=== PATIENT | female | born 1935 | race Caucasian/White ===

== ENCOUNTER 2022-11-25 03:38 | Inpatient (IN) ==
[2022-11-25] MEDS ORDERED: ONDANSETRON 4 MG/2 ML VIAL IV PRN (03:58)
[2022-11-25] MEDS ORDERED: ACETAMINOPHEN 325 MG TABLET PO PRN (03:58)
--- NOTE | 2022-11-25 04:01 | Internal Med History&Physical ---
HPI History of Present Illness Patient information: Note initiated : 11/25/22 at 4:01 am Service Date, if different from initiated Date: [] Patient: Rosie Caro 86 y/o F admitted on . Chief Complaint: [] History of present illness: Ms. Caro is a 86 year old female with a history not limited to hypertension, atrial flutter (on Coumadin), type 2 diabetes mellitus, hypothyroidism, gout, reportedly chronically elevated LFTs who presented to [facility] emergency department feeling unwell. The patient apparently lives in a facility but she does not recall if is at his assisted living or a senior care facility. At [facility], the patient was found to have an acute kidney injury. A CT scan was obtained and showed sigmoid wall thickening, mild diverticulosis, intermediate lesions in bilateral kidneys. A urinalysis was positive for leukocyte Estrace, negative for nitrates. [facility] reported that there were no beds available, transfer to [facility] was requested. The patient was excepted for admission at [facility]. Upon arrival, the patient does not recall going to the emergency department and also does not re call why she went to the emergency department. Examination is notable for left lower quadrant tenderness. Patient's CODE STATUS is DNR/DNI. Review of systems Constitutional: Positive for fatigue Eyes: no vision changes or pain Cardiovascular: no chest pain, no palpitations Respiratory: no cough or dyspnea Gastrointestinal: no abdominal pain, no nausea, vomiting, or diarrhea Genitourinary: Positive for urinary incontinence, denies dysuria Musculoskeletal: no arthralgia or myalgia Integumentary: Positive for skin bruising Neurological: no focal weakness or numbness Psychiatric: no anxiety or depression Physical exam Head: Atraumatic, normal inspection. Eyes: normal appearance, no scleral icterus. Neck: full ROM Respiratory: no respiratory distress. Cardiovascular: normal rate, holosystolic murmur present GI/Abdominal: soft, left lower quadrant tenderness to palpation, mild rebound tenderness Extremities: full range of motion, nontender. Neurological: CN II-XII intact, intact motor, intact sensation. Psychiatric: Impaired memory, does not appear anxious. Skin: Bruising throughout upper and lower extremities. PFSH PFSH All Active Problems (Updated 07/30/18 @ 11:15 by EVANS Paulino) Cellulitis (Acute) Bronchitis (Acute) Posterior left knee pain (Acute) Medical History (Updated 12/30/17 @ 11:15 by EVANS Paulino) Bronchitis Cellulitis MEDS/ALLERGIES Home Medications and Allergies Home Medications Medication Instructions Recorded Confirmed Type Atorvastatin 20 mg PO DAILY 06/26/15 11/03/21 History allopurinol 300 mg tablet 300 mg PO DAILY 06/26/15 11/03/21 History aspirin 81 mg tablet,delayed 81 mg PO DAILY 06/26/15 11/03/21 History release (Adult Low Dose Aspirin) diltiazem HCl 180 mg 180 mg PO DAILY 06/26/15 11/03/21 History capsule,extended release 24 hr magnesium gluconate (bulk) 250 mg PO DAILY 06/26/15 11/03/21 History metformin 500 mg tablet 1,000 mg PO BID 06/26/15 11/03/21 History (Glucophage) albuterol sulfate 90 mcg/actuation 2 puff inhalation .q4-6h PRN 11/03/21 11/03/21 Rx aerosol inhaler (ProAir HFA) cough, shortness of breath, wheezing #8.5 grams amiodarone 200 mg tablet 200 mg PO QDAY 11/03/21 11/03/21 History azithromycin 250 mg tablet See Rx Instructions PO Q24H #6 tabs 11/03/21 11/03/21 Rx famotidine 20 mg tablet 20 mg PO BID 11/03/21 11/03/21 History gabapentin 100 mg capsule 100 mg PO TID 11/03/21 11/03/21 History hydralazine 25 mg tablet 25 mg PO TID 11/03/21 11/03/21 History levetiracetam 500 mg tablet 500 mg PO Q12H 11/03/21 11/03/21 History levothyroxine 25 mcg tablet 125 mcg PO DAILY 11/03/21 11/03/21 History (Levoxyl) losartan 100 mg tablet 100 mg PO QDAY 11/03/21 11/03/21 History metoprolol succinate 50 mg 50 mg PO QDAY 11/03/21 11/03/21 History tablet,extended release 24 hr warfarin 2 mg tablet 2 mg PO DIRECTED 06/03/22 06/03/22 History warfarin 3 mg tablet 3 mg PO DIRECTED 11/03/21 11/03/21 History Allergies Allergy/AdvReac Type Severity Reaction Status Date / Time venom-honey bee Allergy Unknown Unknown Verified 11/25/22 07:32 [bee venom (honey bee)] niacin AdvReac Mild Agitated Verified 11/25/22 07:32 propranolol AdvReac Mild increased Verified 11/03/21 09:32 pain A/P Narrative A/P Narrative: Assessment: 86 year old female with a history not limited to hypertension, atrial flutter (on Coumadin), type 2 diabetes mellitus, hypothyroidism, gout, reportedly chronically elevated LFTs directly admitted from [facility] ED for acute kidney injury and probable acute sigmoid colon diverticulitis. #Acute kidney injury, probably prerenal with unknown baseline #Probable acute sigmoid colon dIverticulitis #Atrial flutter on Coumadin #Hypokalemia #Type 2 diabetes mellitus #Hypertension #Hypothyroidism #Gout #Reportedly chronically elevated LFTs #Generalized weakness Plan -IV fluid challenge, follow renal function and urine output. -No evidence of hydronephrosis on CT scan at [facility]. -Urinalysis for RADHA work-up. -Ceftriaxone and IV metronidazole for possible diverticulitis. -Replace electrolytes as needed. -Coumadin per pharmacy. -Home medication reconciliation. -Monitor LFTs, patient reportedly has chronically elevated LFTs. -Cardiac diet. -PT and OT. -Obtain prior lab work to establish patient's baseline renal function and prior LFT elevations. -DVT prophylaxis: On warfarin. -CODE STATUS: DNR/DNI. -Disposition: Admit to inpatient [facility]. Time Spent With Patient Time: Total time spent is greater than 50% in coordination of care (as documented) at patient's floor/unit and/or counseling patient:
[2022-11-25 06:36] LABS: Basophils # (Auto) 0.03 K/mcL (0.00-0.30); Basophils % (Auto) 0.3 % (0.0-2.0); Eosinophils # (Auto) 0.19 K/mcL (0.00-0.70); Eosinophils % (Auto) 1.8 % (0.0-7.0); Hemoglobin 11.3 g/dL (11.2-15.7); Lymphocytes # (Auto) 1.15 K/mcL (1.50-4.80); Lymphocytes % (Auto) 11.2 % (15.5-49.0); Mean Cell Volume 91.1 fL (80.0-100.0); Mean Corpuscular HGB Conc 32.3 g/dL (31.0-36.0); Mean Platelet Volume 12.5 fL (8.8-12.5); Monocytes # (Auto) 0.48 K/mcL (0.10-0.90); Monocytes % (Auto) 4.7 % (1.0-12.0); Neutrophils % (Auto) 81.6 % (38.0-78.0); Platelet Count 159 K/mcL (140-440); RBC 3.84 M/mcL (3.59-5.38); Red Cell Distribution Width 18.3 % (11.5-14.5); WBC 10.3 K/mcL (4.5-11.0)
[2022-11-25 06:49] LABS: INR 2.9 (0.9-1.1); Prothrombin Time 31.4 sec (11.9-14.5)
[2022-11-25 07:29] LABS: ALT/SGPT 101 U/L (<40); AST/SGOT 123 U/L (<32); Albumin 2.9 gm/dL (3.2-5.2); Alkaline Phosphatase 499 U/L (39-117); Bilirubin,Direct 0.5 mg/dL (<0.3); Blood Urea Nitrogen 49 mg/dL (8-23); Calcium 8.5 mg/dL (8.6-10.4); Carbon Dioxide 27 mmol/L (22-30); Chloride 103 mmol/L (96-108); Globulin 2.9 gm/dL (2.2-3.7); Glomerular Filtration Rate 15; Glucose 96 mg/dL (70-105); Lactate Dehydrogenase 222 U/L (135-225); Phosphorous 2.2 mg/dL (2.5-4.5); Triglycerides 127 mg/dL (<150); Uric Acid 7.5 mg/dL (2.5-8.0)
[2022-11-25] MEDS ORDERED: POTASSIUM CHLORIDE 20 MEQ TABLET PO ONE (07:49)
[2022-11-25] MEDS: metroNIDAZOLE 500 MG/100 ML BAG IV SCH ×3 (10:38→21:24)
[2022-11-25] MEDS: 0.9 % SODIUM CHLORIDE 1,000 ML IV SCH ×3 (10:41→23:13)
[2022-11-25] MEDS: 0.9 % SODIUM CHLORIDE 10 ML SYRINGE IV SCH ×3 (10:44→21:20)
[2022-11-25] MEDS: DOCUSATE SODIUM 100 MG CAPSULE PO SCH ×2 (11:00→21:19)
[2022-11-25] MEDS: cefTRIAXone 2 GM in DEXTROSE 5% IN WATER 50 ML IV SCH (12:18)
[2022-11-25] MEDS ORDERED: WARFARIN 1 MG TABLET PO ONE (14:00)
[2022-11-25] MEDS: SENNOSIDES 1 TABLET PO SCH (21:19)
[2022-11-26] MEDS: metroNIDAZOLE 500 MG/100 ML BAG IV SCH ×3 (05:09→22:10)
[2022-11-26] MEDS: 0.9 % SODIUM CHLORIDE 10 ML SYRINGE IV SCH ×3 (05:53→22:10)
[2022-11-26 06:47] LABS: INR 3.3 (0.9-1.1); Prothrombin Time 34.6 sec (11.9-14.5)
[2022-11-26 07:40] LABS: ALT/SGPT 85 U/L (<40); AST/SGOT 103 U/L (<32); Albumin 2.5 gm/dL (3.2-5.2); Alkaline Phosphatase 462 U/L (39-117); Bilirubin,Direct 0.4 mg/dL (<0.3); Bilirubin,Total 0.7 mg/dL (0.1-1.0); Blood Urea Nitrogen 36 mg/dL (8-23); Calcium 7.8 mg/dL (8.6-10.4); Carbon Dioxide 25 mmol/L (22-30); Chloride 108 mmol/L (96-108); Globulin 2.5 gm/dL (2.2-3.7); Glomerular Filtration Rate 25; Glucose 92 mg/dL (70-105); Lactate Dehydrogenase 184 U/L (135-225); Phosphorous 1.9 mg/dL (2.5-4.5); Triglycerides 90 mg/dL (<150); Uric Acid 6.3 mg/dL (2.5-8.0)
[2022-11-26] MEDS ORDERED: POTASSIUM CHLORIDE 40 MEQ in DEXTROSE 5% IN WATER 500 ML IV ONE (08:00)
[2022-11-26] MEDS: cefTRIAXone 2 GM in DEXTROSE 5% IN WATER 50 ML IV SCH (08:40)
[2022-11-26] MEDS: DOCUSATE SODIUM 100 MG CAPSULE PO SCH ×2 (08:44→19:40)
[2022-11-26 09:38] LABS: Appearance,Urine CLEAR (Clear); Bilirubin,Urine Negative (Negative); Color,Urine YELLOW; Culture Indicated,Urine No; Glucose,Urine (UA) Negative (Negative); Ketones,Urine Negative (Negative); Leukocyte Esterase,Urine Negative /uL (Negative); Mucus,Urine FEW /hpf; Nitrate,Urine Negative (Negative); Protein,Urine Negative (Negative); Specific Gravity,Urine 1.013 (1.000-1.035); Urine Blood Negative (Negative); Urine RBC < 1 /hpf (0-3); Urine Squamous Epithelial Cell 0 /hpf (0-4); Urine WBC 1 /hpf (0-4); Urobilinogen,Urine Negative
--- NOTE | 2022-11-26 10:32 | Ultrasound Report ---
CLINICAL INFORMATION: Elevated LFTS, Gallbladder and liver COMPARISON: None. FINDINGS: The liver is mildly enlarged with a vertical dimension of 18 cm mid clavicular line. Echotexture is inhomogeneous with a nodular contour, suggestive, but not diagnostic of cirrhosis. There is a 1.1 cm hypoechoic mass in the superior right hepatic lobe. Gallbladder and bile ducts are normal: CBD is 7 mm. A 1.7 cm lymph node is seen in the soft tissues adjacent to the susana hepatis. A small amount of free fluid is seen in the perihepatic region.. IMPRESSION: Cardiomegaly with inhomogeneous echotexture and nodular contour with mild ascites is compatible with developing leg cirrhosis. 1.1 cm hypoechoic mass is noted seen in the superior right hepatic lobe.. Suggest biphasic (arterial and portal venous phase) abdomen and pelvic CT to evaluate hepatic mass Interpreted and Authenticated by: Leonid Hurst 11/26/22
--- NOTE | 2022-11-26 10:42 | Internal Med Progress Note ---
SUBJECTIVE Subjective Patient information: Note initiated : 11/26/22 at 10:40 am Service Date, if different from initiated Date: [] Patient: Rosie Caro 86 y/o F admitted on 11/25/22. Chief Complaint: [] Interval history: Ms. Caro is a 86 year old female with a history not limited to hypertension, atrial flutter (on Coumadin), type 2 diabetes mellitus, hypothyroidism, gout, reportedly chronically elevated LFTs who presented to [facility] emergency department feeling unwell. The patient apparently lives in a facility but she does not recall if is at his assisted living or a snf facility. At [facility], the patient was found to have an acute kidney injury. A CT scan was obtained and showed sigmoid wall thickening, mild diverticulosis, intermediate lesions in bilateral kidneys. A urinalysis was positive for leukocyte Estrace, negative for nitrates. [facility] reported that there were no beds available, transfer to [facility] was requested. The patient was excepted for admission at [facility]. Upon arrival, the patient does not recall going to the emergency department and also does not recall why she went to the emergency department. Examination is notable for left lower quadrant tenderness. Patient's CODE STATUS is DNR/DNI. 11/26 No significant events reported overnight, vital stable. Renal function improving, continues on IV fluid. Left lower quadrant abdominal tenderness improving. Urinalysis was normal. Abdominal ultrasound showed hepatomegaly with nodular contour and mild ascites compatible with developing liver cirrhosis. There was at 1.1 cm hypoechoic mass seen in the superior right hepatic lobe. CT abdomen pelvis with biphasic arterial and portal venous phase contrast ordered for further evaluation of the hepatic mass. Potassium replaced. Physical exam Head: Atraumatic, normal inspection. Eyes: normal appearance, no scleral icterus. Neck: full ROM Respiratory: no respiratory distress. Cardiovascular: normal rate, holosystolic murmur present GI/Abdominal: soft, left lower quadrant tenderness to palpation, mild rebound tenderness Extremities: full range of motion, nontender. Neurological: CN II-XII intact, intact motor, intact sensation. Psychiatric: Impaired memory, does not appear anxious. Skin: Bruising throughout upper and lower extremities. Constitutional Vitals: Vital Signs Temp Pulse Resp BP Pulse Ox O2 Del Method 97.5 F 69 18 162/72 96 Room Air 11/26/22 07:57 11/26/22 07:57 11/26/22 07:57 11/26/22 07:57 11/26/22 07:57 11/26/22 07:57 Period Temp Pulse Resp BP Sys/Pina Pulse Ox O2 Del Method O2 Flow Rate Last 24 Hr 97.5 F-98.6 F 64-71 16-18 109-162/47-72 94-97 Room Air-Room Air Intake and Output 11/25/22 11/26/22 11/26/22 19:59 03:59 11:59 Intake Total 750 1200 150 Output Total 801 525 202 Balance -51 675 -52 Weight 70.035 kg Intake & Output: Intake & Output 11/25/22 11/26/22 11/26/22 19:59 03:59 11:59 Intake Total 750 1200 150 Output Total 801 525 202 Balance -51 675 -52 Weight 70.035 kg Intake: IV 250 1100 150 Sodium Chloride 0.9% 1,000 ml @ 1000 100 mls/hr IV .Q10H [facility] Rx#: [id number] Rocephin 2 gm In Dextrose 5% in 50 50 Water 50 ml @ 100 mls/hr IV Q24H [facility] Rx#:[id number] Oral 500 100 Output: Void Amount 800 200 200 # of times incontinent of urine 1 2 Urine/Stool Mix 325 Other: Meal Dinner Percent of Meal Consumed 10 Feeding Ability Independent Urine Appearance Cloudy Cloudy Urine Color Yellow Yellow Yellow Dark Yellow Urine Odor Strong Stool Size Moderate Stool Color Brown Brown Stool Consistency Soft Soft Loose # Bowel Movements 1 # of times incontinent of 2 Bowels OBJ DATA Labs 11/25/22 05:28 11/26/22 05:28 Labs: Abnormal Lab Results 11/26/22 11/26/22 11/26/22 08:36 05:28 05:28 RDW Neut % (Auto) Lymph % (Auto) Lymph # (Auto) Absolute Neutrophils PT 34.6 H INR 3.3 H Potassium 2.8 L* BUN 36 H Creatinine 1.8 H Calcium 7.8 L Phosphorus 1.9 L Direct Bilirubin 0.4 H GGT 601 H AST 103 H ALT 85 H Alkaline Phosphatase 462 H Total Protein 5.0 L Albumin 2.5 L Urine Mucus Few A 11/25/22 11/25/22 11/25/22 05:28 05:28 05:28 RDW 18.3 H Neut % (Auto) 81.6 H Lymph % (Auto) 11.2 L Lymph # (Auto) 1.15 L Absolute Neutrophils 8.41 H PT 31.4 H INR 2.9 H Potassium 2.7 L* BUN 49 H Creatinine 2.8 H Calcium 8.5 L Phosphorus 2.2 L Direct Bilirubin 0.5 H GGT 658 H AST 123 H ALT 101 H Alkaline Phosphatase 499 H Total Protein 5.8 L Albumin 2.9 L Urine Mucus Meds: Medications Acetaminophen (Acetaminophen 325 Mg Tablet) 650 mg PO Q6HP PRN; Protocol PRN Reason: Per Pain Protocol/Fever > 101 Docusate Sodium (Docusate Sodium 100 Mg Capsule) 100 mg PO BID [facility] Last Admin: 11/26/22 08:44 Dose: Not Given Sodium Chloride (Sodium Chloride 0.9%) 1,000 mls @ 100 mls/hr IV .Q10H [facility] Last Admin: 11/25/22 23:13 Dose: 100 mls/hr Ceftriaxone Sodium 2 gm/ (Dextrose) 50 mls @ 100 mls/hr IV Q24H [facility]; Protocol Last Infusion: 11/26/22 09:32 Dose: Infused Metronidazole (Flagyl) 500 mg in 100 mls @ 100 mls/hr IV Q8H [facility]; Protocol Last Infusion: 11/26/22 08:44 Dose: Infused Potassium Chloride 40 meq/ (Dextrose) 520 mls @ 130 mls/hr IV ONCE ONE Stop: 11/26/22 11:59 Last Admin: 11/26/22 09:32 Dose: 130 mls/hr Ondansetron HCl (Ondansetron 4 Mg/2 Ml Vial) 4 mg IV Q6HP PRN PRN Reason: Nausea And Vomiting Senna (Sennosides 1 Tablet) 2 tab PO HS [facility] Last Admin: 11/25/22 21:19 Dose: Not Given Sodium Chloride (0.9 % Sodium Chloride 10 Ml Syringe) 10 ml IV Q8 [facility] Last Admin: 11/26/22 05:53 Dose: Not Given Warfarin Sodium (Warfarin Per Pharmacy) 1 order PO UD [facility] A/P Narrative A/P Narrative: Assessment: 86 year old female with a history not limited to hypertension, atrial flutter (on Coumadin), type 2 diabetes mellitus, hypothyroidism, gout, reportedly chronically elevated LFTs directly admitted from [facility] ED for acute kidney injury and probable acute sigmoid colon diverticulitis. #Acute kidney injury, probably prerenal with unknown baseline #Probable acute sigmoid colon diverticulitis #Liver mass of uncertain etiology #Atrial flutter on Coumadin #Hypokalemia #Type 2 diabetes mellitus #Hypertension #Hypothyroidism #Gout #Reportedly chronically elevated LFTs #Generalized weakness Plan -Continue IV fluid, follow renal function and urine output. -No evidence of hydronephrosis on CT scan at [facility]. -Urinalysis was benign. -Ceftriaxone and IV metronidazole for possible diverticulitis. -CT abdomen pelvis with biphasic contrast to evaluate liver mass. -Replace electrolytes as needed. -Coumadin per pharmacy. -Continue home allopurinol, amiodarone, escitalopram, famotidine, hydralazine, levetiracetam, levothyroxine. -Holding home metoprolol and Cardizem for low normal heart rate. -Holding home losartan and Lasix for RADHA. -Start Norvasc 5 mg daily. -Obtain prior lab work to establish patient's baseline renal function and prior LFT elevations. -Monitor LFTs, patient reportedly has chronically elevated LFTs. -Cardiac diet. -PT and OT. -DVT prophylaxis: On warfarin. -CODE STATUS: DNR/DNI. -Disposition: Inpatient MedSurg. Recommend outpatient colonoscopy when the patient recovers from this acute illness. Time Spent With Patient Time: Total time spent is greater than 50% in coordination of care (as documented) at patient's floor/unit and/or counseling patient: QUALITY VTE Deep Vein Thrombosis/Pulmonary Embolism Present on Admission: No
[2022-11-26] MEDS: hydrALAZINE 25 MG TABLET PO SCH ×2 (14:27→19:39)
[2022-11-26] MEDS: amLODIPine 5 MG TABLET PO SCH (14:27)
[2022-11-26] MEDS: levETIRAcetam 500 MG TABLET PO SCH ×2 (14:27→22:10)
[2022-11-26] MEDS: 0.9 % SODIUM CHLORIDE 1,000 ML IV SCH (15:24)
[2022-11-26] MEDS: SENNOSIDES 1 TABLET PO SCH (19:40)
[2022-11-27] MEDS: 0.9 % SODIUM CHLORIDE 1,000 ML IV SCH ×2 (02:15→07:04)
[2022-11-27] MEDS: 0.9 % SODIUM CHLORIDE 10 ML SYRINGE IV SCH ×3 (05:01→20:31)
[2022-11-27] MEDS: metroNIDAZOLE 500 MG/100 ML BAG IV SCH ×2 (05:54→15:38)
[2022-11-27] MEDS ORDERED: LEVOTHYROXINE 150 MCG TABLET PO SCH (07:30)
[2022-11-27 08:07] LABS: INR 4.2 (0.9-1.1); Prothrombin Time 42.3 sec (11.9-14.5)
[2022-11-27 08:35] LABS: ALT/SGPT 65 U/L (<40); AST/SGOT 70 U/L (<32); Albumin 2.8 gm/dL (3.2-5.2); Albumin/Globulin Ratio 1.1 (1.0-2.3); Alkaline Phosphatase 461 U/L (39-117); Bilirubin,Direct 0.4 mg/dL (<0.3); Bilirubin,Total 0.7 mg/dL (0.1-1.0); Blood Urea Nitrogen 23 mg/dL (8-23); Calcium 7.8 mg/dL (8.6-10.4); Carbon Dioxide 24 mmol/L (22-30); Chloride 105 mmol/L (96-108); Globulin 2.5 gm/dL (2.2-3.7); Glomerular Filtration Rate 41; Glucose 88 mg/dL (70-105); Lactate Dehydrogenase 182 U/L (135-225); Phosphorous 1.7 mg/dL (2.5-4.5); Triglycerides 91 mg/dL (<150); Uric Acid 5.3 mg/dL (2.5-8.0)
[2022-11-27] MEDS ORDERED: POTASSIUM CHLORIDE 20 MEQ TABLET PO ONE (08:53)
[2022-11-27] MEDS ORDERED: MAGNESIUM SULFATE 2 GM/50 ML BAG IV ONE (08:53)
[2022-11-27] MEDS ORDERED: AMIODARONE HCL 200 MG TABLET PO SCH (09:00)
[2022-11-27] MEDS: cefTRIAXone 2 GM in DEXTROSE 5% IN WATER 50 ML IV SCH (09:13)
[2022-11-27] MEDS: amLODIPine 5 MG TABLET PO SCH (09:22)
[2022-11-27] MEDS: hydrALAZINE 25 MG TABLET PO SCH (09:22)
[2022-11-27] MEDS: FAMOTIDINE 20 MG TABLET PO SCH (09:22)
[2022-11-27] MEDS: ESCITALOPRAM 10 MG TABLET PO SCH (09:22)
[2022-11-27] MEDS: ALLOPURINOL 300 MG TABLET PO SCH (09:22)
[2022-11-27] MEDS: levETIRAcetam 500 MG TABLET PO SCH ×2 (09:22→20:45)
[2022-11-27] MEDS: DOCUSATE SODIUM 100 MG CAPSULE PO SCH ×2 (09:23→20:31)
[2022-11-27] MEDS ORDERED: POTASSIUM PHOSPHATE 20 MEQ in DEXTROSE 5% IN WATER 250 ML IV ONE (10:00)
[2022-11-27] MEDS ORDERED: IOPAMIDOL 100 ML BOTTLE IV ONE (10:35)
[2022-11-27] MEDS ORDERED: 0.9 % SODIUM CHLORIDE 500 ML IV ONE (11:17)
--- NOTE | 2022-11-27 12:27 | Cat Scan Report ---
CLINICAL INFORMATION: Elevated LFTs and abdominal pain COMPARISON: None. TECHNIQUE: Following enteric contrast, 80 cc of Isovue-370 were injected intravenously, 20 and 60 seconds later, 0.625 mm helical slices were obtained from the mid heart through the subtrochanteric regions. Following reconstruction, 2.5 mm sagittal, coronal and axial reformatted images were processed and reviewed at bone, lung and soft tissue windows. Five minutes later, 0.625 mm helical slices were obtained from the mid heart through the kidneys and viewed at soft tissue windows.The exam was performed using radiation dose optimization techniques including, but not limited to, automated exposure control, adjustment of the mA and/or kV according to patient size and use of iterative reconstruction technique. FINDINGS: The lung bases show small bilateral pleural effusions and subsegmental atelectasis in both posterior lower lobes. The visualized heart is mildly enlarged with a small pericardial effusion. Pacemaker leads in expected position. Abdominal images show inhomogeneous elevated attenuation of the liver with periportal edema suggesting suggesting a primary hepatopathy secondary as hepatitis. There is a 17 mm simple cyst the posterior segment of the right hepatic lobe corresponding to the sonographic lesion. No solid lesion appreciated. The gallbladder is normal. Intrahepatic and common bile ducts are normal caliber: CBD is 5 mm. The pancreas, spleen and aorta, including aortic branches, are normal in size, configuration and attenuation without focal lesion. An 11 mm benign adenoma present in the left adrenal gland. Right adrenal gland is normal. There is an 11 mm simple cyst of the superior pole the right kidney. 18 mm indeterminate solid/cystic lesion present posterior mid left kidney. Pelvic images show urinary bladder is unremarkable. Hysterectomy and oophorectomy changes noted. There is moderate ascites in the perihepatic region with smaller amounts of perisplenic, paracolic gutter and pelvic regions. The wall of the gastric antrum is mildly thickened with mucosal enhancement which could indicate gastritis or infiltrative process. The small bowel and colon are grossly normal. Bone windows show chronic right L5-S1 spondylolysis. Broad L5-S1 disc protrusion results in moderate IV foraminal narrowing or exiting L5 nerve root impingement. IMPRESSION: 1. Inhomogeneous hepatic attenuation with periportal edema suggesting hepatitis or other primary hepatopathy. Consider sonographic guided biopsy for tissue diagnosis. 2. 17 mm cyst posterior segment right hepatic lobe. No solid lesion. 3. 18 mm indeterminate lesion posterior mid left kidney. Suggest renal ultrasound to evaluate for cyst. There is a 11 simple cysts in the superior pole the right kidney. 4. Moderate concentric wall thickening the gastric antrum with mucosal enhancement which could indicate gastroenteritis or other infiltrative pathology. Consider upper endoscopy. 5. Lumbar degeneration as described 6. Tiny bilateral pleural effusions. Interpreted and Authenticated by: Leonid Hurst 11/27/22
[2022-11-27] MEDS ORDERED: ACETAMINOPHEN 325 MG TABLET PO PRN ×2 (13:06→13:12)
[2022-11-27 15:28] LABS: Hepatitis C Virus Antibody Non-Reactive (Non-Reactive)
[2022-11-27 15:33] LABS: Hepatitis B Surface Antigen Negative (Negative)
--- NOTE | 2022-11-27 16:42 | Internal Medicine Consult Note ---
HPI Date of Consult Consult Date: 11/27/22 Primary Care Provider: ROMEO Stratton Consult Narrative Chief complaint: Abnormal liver enzymes. Reason for consult: Abnormal liver enzymes. History of present illness: Ms. Caro is an 86 year old white female with diastolic heart failure and atrial fibrillation on warfarin who was transferred from [facility] for RADHA. She is requesting comfort measures only and has declined dialysis. She has poor memory and is a vague historian. She presented with elevated liver enzymes in a cholestatic pattern ALP 400s, AST/ALT 70s, total bilirubin normal. GGT 600s (she is on keppra). She denies alcohol use. She was hospitalized for congestive hepatopathy at [facility] in August but apparently has not yet seen cardiology or GI (our staff called those providers to confirm). We are asked to consult about possible amiodarone drug induced liver injury. INR supratherapeutic at 4.2. cc:: CC: Ant Vargas MD Review of Systems All systems: reviewed and no additional remarkable complaints except as stated PFSH PFSH All Active Problems (Updated 11/27/22 @ 16:52 by VEANS Can) Abnormal liver enzymes (Acute) Cellulitis (Acute) Bronchitis (Acute) Posterior left knee pain (Acute) Medical History (Updated 11/27/22 @ 16:52 by EVANS Can) Bronchitis Cellulitis Social History smoking status: Never smoker MEDS/ALLERGIES Home Medications and Allergies Home Medications Medication Instructions Recorded Confirmed Type allopurinol 300 mg tablet 300 mg PO DAILY 06/26/15 11/25/22 History diltiazem HCl 180 mg 240 mg PO DAILY 06/26/15 11/25/22 History capsule,extended release 24 hr amiodarone 200 mg tablet 200 mg PO QDAY 11/03/21 11/25/22 History famotidine 20 mg tablet 20 mg PO DAILY 11/03/21 11/25/22 History hydralazine 25 mg tablet 25 mg PO TID 11/03/21 11/25/22 History levetiracetam 500 mg tablet 500 mg PO Q12H 11/03/21 11/25/22 History levothyroxine 25 mcg tablet 150 mcg PO DAILY 11/03/21 11/25/22 History (Levoxyl) losartan 100 mg tablet 100 mg PO QDAY 11/03/21 11/25/22 History metoprolol succinate 50 mg 75 mg PO QDAY 11/03/21 11/25/22 History tablet,extended release 24 hr warfarin 2 mg tablet 2 mg PO DIRECTED 11/03/21 11/25/22 History warfarin 3 mg tablet 2.5 mg PO DIRECTED 11/03/21 11/25/22 History Adult One Daily Multivitamin 1 tab PO DAILY 11/25/22 11/25/22 History escitalopram oxalate 10 mg tablet 10 mg PO QDAY 11/25/22 11/25/22 History furosemide 20 mg tablet 20 mg PO QDAY 11/25/22 11/25/22 History Allergies Allergy/AdvReac Type Severity Reaction Status Date / Time venom-honey bee Allergy Unknown Unknown Verified 11/25/22 07:32 [bee venom (honey bee)] niacin AdvReac Mild Agitated Verified 11/25/22 07:32 propranolol AdvReac Mild increased Verified 11/03/21 09:32 pain EXAM Constitutional Vitals: Temp Pulse Resp BP Pulse Ox O2 Del Method O2 Flow Rate 97.2 F 76 20 125/64 94 Room Air 2 11/27/22 16:00 11/27/22 16:00 11/27/22 16:00 11/27/22 16:00 11/27/22 16:00 11/27/22 16:00 11/26/22 11:39 General appearance: average body habitus and cooperative; no no acute distress Head Head exam: Present atraumatic, normal inspection and normocephalic Eye Eye exam: Present normal appearance ENT ENT exam: Present mucous membranes moist Neck Additional comments: JVD + Respiratory Respiratory exam: Present normal respiratory exam; Absent accessory muscle use GI/Abdominal GI/Abdominal exam: Present normal bowel sounds, soft and organomegaly Additional comments: Hepatomegaly with an elongated right lobe of the liver. RUQ tenderness. No ascites. Expanded GI/Abdominal Exam GI/Abdominal exam: Absent ascites Rectal Rectal exam: Present deferred Extremities Exam Additional comments: Minimal dependent edema. Neurological Exam Neurological exam: Present alert Additional comments: poor memory, word searching Psychiatric Psychiatric exam: Present normal affect and normal mood Skin Skin exam: Present dry, normal color and warm DATA Data Completed and Pending Labs: Labs from last 24 hours 11/27/22 11/27/2223 14:50 13:30 13:30 PT INR Sodium Potassium Chloride Carbon Dioxide Anion Gap BUN Creatinine GFR Calculation Glucose Uric Acid Calcium Phosphorus Magnesium Total Bilirubin Direct Bilirubin GGT AST ALT Alkaline Phosphatase Lactate Dehydrogenase Total Protein Albumin Globulin Albumin/Globulin Ratio Triglycerides TSH 9.86 H CHRISTI Screen Pending CHRISTI Pattern Pending Neuronal Nuc Ab Titer Pending Mitochon/Sm Musc Ab Titr Pending Smooth Muscle IgG Ab Pending Livr/Kid Microsome 1 Ab Pending Hepatitis A Ab Total Pending Hep Bs Antigen Pending Hep Bs Ag Neutralizatn Pending Hep Bs Antibody, Quant Pending Hep B Core Total Ab Pending Hepatitis C Antibody Pending HCV RNA Quant (PCR) Pending HCV RNA PCR log IUs/ml Pending Mitochondrial DNA Scrn Pending 11/27/22 11/27/22 11/27/22 13:30 06:10 06:10 PT 42.3 H INR 4.2 H Sodium 140 Potassium 3.3 Chloride 105 Carbon Dioxide 24 Anion Gap 11.0 BUN 23 Creatinine 1.2 H GFR Calculation 41 Glucose 88 Uric Acid 5.3 Calcium 7.8 L Phosphorus 1.7 L Magnesium 1.5 L Total Bilirubin 0.7 Direct Bilirubin 0.4 H GGT 638 H AST 70 H ALT 65 H Alkaline Phosphatase 461 H Lactate Dehydrogenase 182 Total Protein 5.3 L Albumin 2.8 L Globulin 2.5 Albumin/Globulin Ratio 1.1 Triglycerides 91 TSH CHRISTI Screen CHRISTI Pattern Neuronal Nuc Ab Titer Mitochon/Sm Musc Ab Titr Smooth Muscle IgG Ab Livr/Kid Microsome 1 Ab Hepatitis A Ab Total Hep Bs Antigen Negative Hep Bs Ag Neutralizatn Hep Bs Antibody, Quant Hep B Core Total Ab Pending Hepatitis C Antibody Non-reactive HCV RNA Quant (PCR) HCV RNA PCR log IUs/ml Mitochondrial DNA Scrn A/P Assessment and plan (1) Abnormal liver enzymes: Plan: I reviewed her case with Dr. Driver. Her clinical picture is most consistent with congestive hepatopathy. Amiodarone drug induced liver injury more commonly causes transaminase elevation. Liver biopsy not indicated at this time, but if the patient wishes to pursue, should be performed transjugular with IR. She stated several times during my interview she is only interested in comfort measures. We appreciate Dr. Vargas's ordering of chronic hepatitis serologies and will reconsult if AMA or SMA positive. Status: Acute Time Spent With Patient Time: Total time spent is greater than 50% in coordination of care (as documented) at patient's floor/unit and/or counseling patient: Initial: Total time with patient: 40 - 54 minutes
[2022-11-27] MEDS ORDERED: 0.9 % SODIUM CHLORIDE 1,000 ML IV SCH (18:30)
--- NOTE | 2022-11-27 18:30 | Internal Med Progress Note ---
SUBJECTIVE Subjective Patient information: Note initiated : 11/27/22 at 6:28 pm Service Date, if different from initiated Date: [] Patient: Rosie Caro 86 y/o F admitted on 11/25/22. Chief Complaint: [] Interval history: Ms. Caro is a 86 year old female with a history not limited to hypertension, atrial flutter (on Coumadin), type 2 diabetes mellitus, hypothyroidism, gout, reportedly chronically elevated LFTs who presented to [facility] emergency department feeling unwell. The patient apparently lives in a facility but she does not recall if is at his assisted living or a correction facility. At [facility], the patient was found to have an acute kidney injury. A CT scan was obtained and showed sigmoid wall thickening, mild diverticulosis, intermediate lesions in bilateral kidneys. A urinalysis was positive for leukocyte Estrace, negative for nitrates. [facility] reported that there were no beds available, transfer to [facility] was requested. The patient was excepted for admission at [facility]. Upon arrival, the patient does not recall going to the emergency department and also does not recall why she went to the emergency department. Examination is notable for left lower quadrant tenderness. Patient's CODE STATUS is DNR/DNI. 11/26 No significant events reported overnight, vital stable. Renal function improving, continues on IV fluid. Left lower quadrant abdominal tenderness improving. Urinalysis was normal. Abdominal ultrasound showed hepatomegaly with nodular contour and mild ascites compatible with developing liver cirrhosis. There was at 1.1 cm hypoechoic mass seen in the superior right hepatic lobe. CT abdomen pelvis with biphasic arterial and portal venous phase contrast ordered for further evaluation of the hepatic mass. Potassium replaced. 11/27 Vitals have been stable except for intermittent hypotension. Orthostatic vitals positive today, IV fluid given today. Recheck orthostatic vitals tomorrow. Replaced potassium, magnesium and phosphorus today. Renal function improving, CT abdomen pelvis with biphasic IV contrast obtained to evaluate hypoechoic liver mass which was felt to be a cyst based on the CT report. It was inhomogeneous hepatic attenuation with periportal edema suggesting hepatopathy. There was an indeterminant left kidney lesion seen on the CT scan. There was a moderate concentric wall thickening in the gastric antrum with mucosal enhancem ent. Gastroenterology consulted for further evaluation of the elevated liver enzymes in light of the CT scan findings and felt that the clinical picture was most consistent with congestive hepatopathy. GI did not feel that amiodarone- induced liver injury was the reason for the patient's elevated liver enzymes. Chronic hepatitis panel and autoimmune hepatitis panel ordered, these are send out labs. An echocardiogram as well as a portal vein Doppler was ordered. I also ordered a left renal ultrasound for further evaluation of the indeterminate lesion seen on the CT scan. There were no signs of acute diverticulitis on the CT scan therefore I discontinued antibiotics as CT scans are quite sensitive for acute diverticulitis and a negative scan is associated with a high negative predictive value. TSH checked and was elevated at 9.86. Levothyroxine increased to 175 mcg daily. Physical exam Head: Atraumatic, normal inspection. Eyes: normal appearance, no scleral icterus. Neck: full ROM Respiratory: no respiratory distress. Cardiovascular: normal rate, holosystolic murmur present GI/Abdominal: soft, left lower quadrant tenderness to palpation, mild rebound tenderness Extremities: full range of motion, nontender. Neurological: CN II-XII intact, intact motor, intact sensation. Psychiatric: Impaired memory, does not appear anxious. Skin: Bruising throughout upper and lower extremities. Constitutional Vitals: Vital Signs Temp Pulse Resp BP Pulse Ox O2 Del Method O2 Flow Rate 97.2 F 76 20 125/64 94 Room Air 2 11/27/22 16:00 11/27/22 16:00 11/27/22 16:00 11/27/22 16:00 11/27/22 16:00 11/27/22 16:00 11/26/22 11:39 Period Temp Pulse Resp BP Sys/Pina Pulse Ox O2 Del Method O2 Flow Rate Last 24 Hr 97.2 F-98.1 F 71-87 16-20 87-152/47-78 94-99 Room Air-Room Air Intake and Output 11/27/22 11/27/22 11/27/22 03:59 11:59 19:59 Intake Total 1100 7149 843.7217 Output Total 2 4 200 Balance 1098 0691 428.2401 Intake & Output: Intake & Output 11/27/22 11/27/22 11/27/22 03:59 11:59 19:59 Intake Total 1100 8942 704.9246 Output Total 2 4 200 Balance 1098 5710 980.2345 Intake: IV 1100 9970 762.2329 Sodium Chloride 0.9% 1,000 ml @ 1000 1000 100 mls/hr IV .Q10H [facility] Rx#: [id number] Sodium Chloride 0.9% 500 ml @ 500 Wide Open IV BOLUS ONE Rx#: [id number] Potassium Phosphate 20 Meq In 254.5455 Dextrose 5% in Water 250 ml @ 127.273 mls/hr IV ONCE ONE Rx#: [id number] Rocephin 2 gm In Dextrose 5% in 50 Water 50 ml @ 100 mls/hr IV Q24H [facility] Rx#:[id number] Oral 480 Output: Void Amount 200 # of times incontinent of urine 2 4 Other: Urine Appearance Clear Urine Color Dark Yellow Yellow Urine Odor Normal Stool Size Moderate Stool Color Brown Yellow Stool Consistency Soft # Voids 2 4 # Bowel Movements 1 # of times incontinent of 1 Bowels # Emeses 1 OBJ DATA Labs 11/25/22 05:28 11/27/22 06:10 Labs: Abnormal Lab Results 11/27/22 11/27/22 11/27/22 14:50 06:10 06:10 RDW Neut % (Auto) Lymph % (Auto) Lymph # (Auto) Absolute Neutrophils PT 42.3 H INR 4.2 H Potassium BUN Creatinine 1.2 H Calcium 7.8 L Phosphorus 1.7 L Magnesium 1.5 L Direct Bilirubin 0.4 H GGT 638 H AST 70 H ALT 65 H Alkaline Phosphatase 461 H Total Protein 5.3 L Albumin 2.8 L TSH 9.86 H Urine Mucus 11/26/22 11/26/22 11/26/22 08:36 05:28 05:28 RDW Neut % (Auto) Lymph % (Auto) Lymph # (Auto) Absolute Neutrophils PT 34.6 H INR 3.3 H Potassium 2.8 L* BUN 36 H Creatinine 1.8 H Calcium 7.8 L Phosphorus 1.9 L Magnesium Direct Bilirubin 0.4 H GGT 601 H AST 103 H ALT 85 H Alkaline Phosphatase 462 H Total Protein 5.0 L Albumin 2.5 L TSH Urine Mucus Few A 11/25/22 11/25/22 11/25/22 05:28 05:28 05:28 RDW 18.3 H Neut % (Auto) 81.6 H Lymph % (Auto) 11.2 L Lymph # (Auto) 1.15 L Absolute Neutrophils 8.41 H PT 31.4 H INR 2.9 H Potassium 2.7 L* BUN 49 H Creatinine 2.8 H Calcium 8.5 L Phosphorus 2.2 L Magnesium Direct Bilirubin 0.5 H GGT 658 H AST 123 H ALT 101 H Alkaline Phosphatase 499 H Total Protein 5.8 L Albumin 2.9 L TSH Urine Mucus Meds: Medications Acetaminophen (Acetaminophen 325 Mg Tablet) 325 mg PO Q8HP PRN; Protocol PRN Reason: Per Pain Protocol/Fever > 101 Allopurinol (Allopurinol 300 Mg Tablet) 300 mg PO DAILY [facility] Last Admin: 11/27/22 09:22 Dose: 300 mg Docusate Sodium (Docusate Sodium 100 Mg Capsule) 100 mg PO BID [facility] Last Admin: 11/27/22 09:23 Dose: Not Given Escitalopram Oxalate (Escitalopram 10 Mg Tablet) 10 mg PO QDAY [facility] Last Admin: 11/27/22 09:22 Dose: 10 mg Famotidine (Famotidine 20 Mg Tablet) 20 mg PO DAILY [facility] Last Admin: 11/27/22 09:22 Dose: 20 mg Sodium Chloride (Sodium Chloride 0.9%) 1,000 mls @ 125 mls/hr IV .Q8H [facility] Stop: 11/28/22 02:29 Levetiracetam (Levetiracetam 500 Mg Tablet) 500 mg PO BID [facility] Last Admin: 11/27/22 09:22 Dose: 500 mg Levothyroxine Sodium (Levothyroxine 150 Mcg Tablet) 175 mcg PO QAMAC [facility] Ondansetron HCl (Ondansetron 4 Mg/2 Ml Vial) 4 mg IV Q6HP PRN PRN Reason: Nausea And Vomiting Last Admin: 11/27/22 09:11 Dose: 4 mg Senna (Sennosides 1 Tablet) 2 tab PO HS [facility] Last Admin: 11/26/22 19:40 Dose: Not Given Sodium Chloride (0.9 % Sodium Chloride 10 Ml Syringe) 10 ml IV Q8 [facility] Last Admin: 11/27/22 15:39 Dose: 10 ml Warfarin Sodium (Warfarin Per Pharmacy) 1 order PO UD [facility] A/P Narrative A/P Narrative: Assessment: 86 year old female with a history not limited to hypertension, atri al flutter (on Coumadin), type 2 diabetes mellitus, hypothyroidism, gout, reportedly chronically elevated LFTs directly admitted from [facility] ED for acute kidney injury and concern for acute sigmoid colon diverticulitis. Patient was initially on IV antibiotics directed for acute diverticulitis however the CT scan of her abdomen did not show any evidence of diverticulitis and antibiotics were discontinued. The patient's liver enzymes are elevated and review of records from [facility] show that they have been elevated for some time. Note that ALT and GGT are also elevated however there is no evidence of biliary pathology on the ultrasound or the CT scan. Gastroenterology was consulted, felt this was secondary to congestive hepatopathy however there is some question whether the patient has heart failure is severe enough for her to develop congestive hepatopathy. Further work-up has been ordered including an echocardiogram and portal vein as well as hepatic vein Dopplers. A chronic hepatitis panel, autoimmune hepatitis panel, viral hepatitis serology ordered. Due to concern that amiodarone may be causing drug-induced liver injury it has been held since admission. #Resolving acute kidney injury, probably prerenal #Elevated transaminases felt to be due to congestive hepatopathy #Concern for possible drug-induced liver injury secondary to amiodarone #Indeterminate left kidney lesion #Reported history of heart failure, unspecified type #Atrial flutter on Coumadin #Resolved hypokalemia #Type 2 diabetes mellitus #Hypertension #Hypothyroidism, poorly controlled #Gout #Generalized weakness #Orthostatic hypotension Plan -IV fluid today, follow renal function and urine output. -Orthostatic vitals tomorrow. -No evidence of hydronephrosis on the CT scan, urinalysis was benign. -Discontinue ceftriaxone and IV metronidazole as CT scan did not show any evidence of acute diverticulitis. -Transthoracic echocardiogram to evaluate for signs of heart failure, valvulopathy. -Portal vein and hepatic vein Dopplers to evaluate for congestive changes that would support a diagnosis of congestive hepatopathy. -Left renal ultrasound to evaluate indeterminate kidney lesion. -Replace electrolytes as needed. -Discontinue Norvasc as the patient has been intermittently hypotensive. -Increase levothyroxine to 175 mcg daily, repeat TSH in about 6 weeks. -Coumadin per pharmacy. -Continue home allopurinol, escitalopram, famotidine, hydralazine, levetiracetam. -Holding home metoprolol and Cardizem for intermittent hypotension. -Holding home losartan and Lasix for recent recovering RADHA, intermittent hypotension. -Holding amiodarone for now. -Monitor LFTs. -GI consulted for elevated transaminases. -Cardiac diet. -PT and OT. -DVT prophylaxis: On warfarin. -CODE STATUS: DNR/DNI. -Disposition: Inpatient MedSurg. Anticipate the patient will discharge to low intensity rehab when medically stable. Time Spent With Patient Time: Total time spent is greater than 50% in coordination of care (as documented) at patient's floor/unit and/or counseling patient: QUALITY VTE Deep Vein Thrombosis/Pulmonary Embolism Present on Admission: No
[2022-11-27] MEDS: SENNOSIDES 1 TABLET PO SCH (20:31)
--- NOTE | 2022-11-28 02:57 | Ultrasound Report ---
CLINICAL INFORMATION: Portal vein and hepatic vein Doppler. COMPARISON: None. FINDINGS: Portal vein is normal in diameter and 15 mm demonstrates normal hepatopedal directional blood flow. Hepatic veins are also normal caliber and demonstrates normal blood flow. Left kidney is normal in size and echotexture spanning 10 x 5 cm and demonstrates normal arterial blood flow on color Doppler. There is a 1.7 cm cyst in the posterior aspect inferior pole left kidney corresponding to the CT lesion. IMPRESSION: Portal and hepatic veins are unremarkable. 1.7 cm cyst inferior pole left kidney corresponding to the CT finding Interpreted and Authenticated by: Leonid Hurst 11/28/22
[2022-11-28] MEDS: 0.9 % SODIUM CHLORIDE 1,000 ML IV SCH (03:46)
[2022-11-28] MEDS: 0.9 % SODIUM CHLORIDE 10 ML SYRINGE IV SCH ×2 (04:38→13:59)
[2022-11-28 06:45] LABS: INR 4.8 (0.9-1.1); Prothrombin Time 46.4 sec (11.9-14.5)
[2022-11-28 07:00] LABS: ALT/SGPT 52 U/L (<40); AST/SGOT 56 U/L (<32); Albumin 2.5 gm/dL (3.2-5.2); Alkaline Phosphatase 459 U/L (39-117); Bilirubin,Direct 0.3 mg/dL (<0.3); Bilirubin,Total 0.6 mg/dL (0.1-1.0); Blood Urea Nitrogen 19 mg/dL (8-23); Calcium 7.7 mg/dL (8.6-10.4); Carbon Dioxide 23 mmol/L (22-30); Chloride 105 mmol/L (96-108); Globulin 2.6 gm/dL (2.2-3.7); Glomerular Filtration Rate 37; Glucose 91 mg/dL (70-105); Lactate Dehydrogenase 174 U/L (135-225); Phosphorous 2.7 mg/dL (2.5-4.5); Triglycerides 80 mg/dL (<150); Uric Acid 4.8 mg/dL (2.5-8.0)
[2022-11-28] MEDS ORDERED: POTASSIUM CHLORIDE 20 MEQ TABLET PO SCH (07:23)
[2022-11-28] MEDS ORDERED: LEVOTHYROXINE 100 MCG TABLET PO SCH (07:30)
[2022-11-28] MEDS ORDERED: LEVOTHYROXINE 75 MCG TABLET PO SCH (07:30)
--- NOTE | 2022-11-28 08:25 | Internal Med Progress Note ---
SUBJECTIVE Subjective Patient information: Note initiated : 11/28/22 at 8:18 am Service Date, if different from initiated Date: [] Patient: Rosie Caro 86 y/o F admitted on 11/25/22. Chief Complaint: [] Interval history: Ms. Caro is a 86 year old female with a history not limited to hypertension, atrial flutter (on Coumadin), type 2 diabetes mellitus, hypothyroidism, gout, reportedly chronically elevated LFTs who presented to [facility] emergency department feeling unwell. The patient apparently lives in a facility but she does not recall if is at his assisted living or a penitentiary facility. At [facility], the patient was found to have an acute kidney injury. A CT scan was obtained and showed sigmoid wall thickening, mild diverticulosis, intermediate lesions in bilateral kidneys. A urinalysis was positive for leukocyte Estrace, negative for nitrates. [facility] reported that there were no beds available, transfer to [facility] was requested. The patient was excepted for admission at [facility]. Upon arrival, the patient does not recall going to the emergency department and also does not recall why she went to the emergency department. Examination is notable for left lower quadrant tenderness. Patient's CODE STATUS is DNR/DNI. 11/26 No significant events reported overnight, vital stable. Renal function improving, continues on IV fluid. Left lower quadrant abdominal tenderness improving. Urinalysis was normal. Abdominal ultrasound showed hepatomegaly with nodular contour and mild ascites compatible with developing liver cirrhosis. There was at 1.1 cm hypoechoic mass seen in the superior right hepatic lobe. CT abdomen pelvis with biphasic arterial and portal venous phase contrast ordered for further evaluation of the hepatic mass. Potassium replaced. 11/27 Vitals have been stable except for intermittent hypotension. Orthostatic vitals positive today, IV fluid given today. Recheck orthostatic vitals tomorrow. Replaced potassium, magnesium and phosphorus today. Renal function improving, CT abdomen pelvis with biphasic IV contrast obtained to evaluate hypoechoic liver mass which was felt to be a cyst based on the CT report. It was inhomogeneous hepatic attenuation with periportal edema suggesting hepatopathy. There was an indeterminant left kidney lesion seen on the CT scan. There was a moderate concentric wall thickening in the gastric antrum with mucosal enhancem ent. Gastroenterology consulted for further evaluation of the elevated liver enzymes in light of the CT scan findings and felt that the clinical picture was most consistent with congestive hepatopathy. GI did not feel that amiodarone- induced liver injury was the reason for the patient's elevated liver enzymes. Chronic hepatitis panel and autoimmune hepatitis panel ordered, these are send out labs. An echocardiogram as well as a portal vein Doppler was ordered. I also ordered a left renal ultrasound for further evaluation of the indeterminate lesion seen on the CT scan. There were no signs of acute diverticulitis on the CT scan therefore I discontinued antibiotics as CT scans are quite sensitive for acute diverticulitis and a negative scan is associated with a high negative predictive value. TSH checked and was elevated at 9.86. Levothyroxine increased to 175 mcg daily. 11/28 Vitals stable overnight, normal blood pressure while in bed. Will check orthostatic vitals later this morning. INR trending up, the patient has not received Coumadin recently therefore this may be related to the patient's liver injury. Portal and hepatic vein duplex results were reported as unremarkable raising the question of whether or not the patient's transaminases are secondary to another cause other than congestive hepatopathy. Transthoracic echocardiogram report pending. Chronic hepatitis panel, autoimmune hepatitis panel pending. Hepatitis B surface antigen negative, hepatitis B core antibody negative, hepatitis C antibody negative. Magnesium was low this morning, replaced. The ultrasound showed that the indeterminant left kidney lesion was a cyst.CM working on placement. Physical exam Head: Atraumatic, normal inspection. Eyes: normal appearance, no scleral icterus. Neck: full ROM Respiratory: no respiratory distress. Cardiovascular: normal rate, holosystolic murmur present GI/Abdominal: soft, left lower quadrant tenderness to palpation, mild rebound tenderness Extremities: full range of motion, nontender. Neurological: CN II-XII intact, intact motor, intact sensation. Psychiatric: Impaired memory, does not appear anxious. Skin: Bruising throughout upper and lower extremities. Constitutional Vitals: Vital Signs Temp Pulse Resp BP Pulse Ox O2 Del Method O2 Flow Rate 97.3 F 76 16 118/50 92 Room Air 2 11/28/22 03:15 11/28/22 03:15 11/28/22 03:15 11/28/22 03:15 11/28/22 03:15 11/28/22 03:15 11/26/22 11:39 Period Temp Pulse Resp BP Sys/Pina Pulse Ox O2 Del Method O2 Flow Rate Last 24 Hr 97.2 F-97.9 F 71-87 16-20 87-125/49-64 92-96 Room Air-Room Air Intake and Output 11/27/22 11/28/22 11/28/22 19:59 03:59 11:59 Intake Total 1234.5455 1200 Output Total 200 276 128 Balance 1034.5455 924 -128 Weight 76.34 kg 75.024 kg Intake & Output: Intake & Output 11/27/22 11/28/22 11/28/22 19:59 03:59 11:59 Intake Total 1234.5455 1200 Output Total 200 276 128 Balance 1034.5455 924 -128 Weight 76.34 kg 75.024 kg Intake: IV 754.5455 1000 Sodium Chloride 0.9% 1,000 ml @ 1000 125 mls/hr IV .Q8H [facility] Rx#: [id number] Sodium Chloride 0.9% 500 ml @ 500 Wide Open IV [facility] ONE Rx#: [id number] Potassium Phosphate 20 Meq In 254.5455 Dextrose 5% in Water 250 ml @ 127.273 mls/hr IV ONCE ONE Rx#: [id number] Oral 480 200 Output: Void Amount 200 275 125 # of times incontinent of urine 1 3 Other: Meal Dinner Percent of Meal Consumed 100% Feeding Ability Independent Urine Appearance Clear Clear Clear Urine Color Yellow Yellow Dark Yellow Stool Size Moderate Small Stool Color Brown Yellow Stool Consistency Soft Soft Liquid # of times incontinent of 1 Bowels OBJ DATA Labs 11/25/22 05:28 11/28/22 05:27 Labs: Abnormal Lab Results 11/28/22 11/28/22 11/27/22 05:28 05:27 14:50 PT 46.4 H INR 4.8 H Potassium Anion Gap 7.0 L BUN Creatinine 1.3 H Calcium 7.7 L Phosphorus Magnesium 1.4 L Direct Bilirubin 0.3 H GGT 625 H AST 56 H ALT 52 H Alkaline Phosphatase 459 H Total Protein 5.1 L Albumin 2.5 L TSH 9.86 H Urine Mucus 11/27/22 11/27/22 11/26/22 06:10 06:10 08:36 PT 42.3 H INR 4.2 H Potassium Anion Gap BUN Creatinine 1.2 H Calcium 7.8 L Phosphorus 1.7 L Magnesium 1.5 L Direct Bilirubin 0.4 H GGT 638 H AST 70 H ALT 65 H Alkaline Phosphatase 461 H Total Protein 5.3 L Albumin 2.8 L TSH Urine Mucus Few A 11/26/22 11/26/22 05:28 05:28 PT 34.6 H INR 3.3 H Potassium 2.8 L* Anion Gap BUN 36 H Creatinine 1.8 H Calcium 7.8 L Phosphorus 1.9 L Magnesium Direct Bilirubin 0.4 H GGT 601 H AST 103 H ALT 85 H Alkaline Phosphatase 462 H Total Protein 5.0 L Albumin 2.5 L TSH Urine Mucus Meds: Medications Acetaminophen (Acetaminophen 325 Mg Tablet) 325 mg PO Q8HP PRN; Protocol PRN Reason: Per Pain Protocol/Fever > 101 Allopurinol (Allopurinol 300 Mg Tablet) 300 mg PO DAILY [facility] Last Admin: 11/27/22 09:22 Dose: 300 mg Docusate Sodium (Docusate Sodium 100 Mg Capsule) 100 mg PO BID [facility] Last Admin: 11/27/22 20:31 Dose: Not Given Escitalopram Oxalate (Escitalopram 10 Mg Tablet) 10 mg PO QDAY [facility] Last Admin: 11/27/22 09:22 Dose: 10 mg Famotidine (Famotidine 20 Mg Tablet) 20 mg PO DAILY [facility] Last Admin: 11/27/22 09:22 Dose: 20 mg Magnesium Sulfate (Magnesium Sulfate) 2 gm in 50 mls @ 25 mls/hr IV ONCE [facility] Stop: 11/28/22 12:00 Levetiracetam (Levetiracetam 500 Mg Tablet) 500 mg PO BID [facility] Last Admin: 11/27/22 20:45 Dose: 500 mg Levothyroxine Sodium (Levothyroxine 100 Mcg Tablet) 100 mcg PO ACB [facility] Last Admin: 11/28/22 07:22 Dose: 100 mcg Levothyroxine Sodium (Levothyroxine 75 Mcg Tablet) 75 mcg PO ACB [facility] Last Admin: 11/28/22 07:22 Dose: 75 mcg Ondansetron HCl (Ondansetron 4 Mg/2 Ml Vial) 4 mg IV Q6HP PRN PRN Reason: Nausea And Vomiting Last Admin: 11/27/22 09:11 Dose: 4 mg Potassium Chloride (Potassium Chloride 20 Meq Tablet) 20 meq PO ONCE [facility] Stop: 11/28/22 11:00 Senna (Sennosides 1 Tablet) 2 tab PO HS [facility] Last Admin: 11/27/22 20:31 Dose: Not Given Sodium Chloride (0.9 % Sodium Chloride 10 Ml Syringe) 10 ml IV Q8 [facility] Last Admin: 11/28/22 04:38 Dose: 10 ml Warfarin Sodium (Warfarin Per Pharmacy) 1 order PO UD [facility] A/P Narrative A/P Narrative: Assessment: 86 year old female with a history not limited to hypertension, atrial flutter (on Coumadin), type 2 diabetes mellitus, hypothyroidism, gout, reportedly chronically elevated LFTs directly admitted from [facility] ED for acute kidney injury and concern for acute sigmoid colon diverticulitis. Patient was initially on IV antibiotics directed for acute diverticulitis however the CT scan of her abdomen did not show any evidence of diverticulitis and antibiotics were discontinued. The patient's liver enzymes are elevated and review of records from [facility] show that they have been elevated for some time. Note that ALT and GGT are also elevated however there is no evidence of biliary pathology on the ultrasound or the CT scan. Gastroenterology was consulted, felt this was secondary to congestive hepatopathy however there is some question whether the patient has heart failure is severe enough for her to develop congestive hepatopathy. Further work-up has been ordered including an echocardiogram and portal vein as well as hepatic vein Dopplers. A chronic hepatitis panel, autoimmune hepatitis panel, viral hepatitis serology ordered. Due to concern that amiodarone may be causing drug-induced liver injury it has been held since admission. #Resolving acute kidney injury, probably prerenal #Chronic hepatitis of uncertain etiology #Concern for possible drug-induced liver injury secondary to amiodarone #Atrial flutter on Coumadin #Coagulopathy likely combination of Coumadin and chronic hepatitis #Reported history of heart failure, unspecified type #Hypomagnesemia #Resolved hypokalemia #Type 2 diabetes mellitus #History of hypertension #Hypothyroidism, poorly controlled #Gout #Generalized weakness #Orthostatic hypotension Plan -Follow-up pending transthoracic echocardiogram results, if no significant structural or functional impairment then congestive hepatopathy is unlikely given unremarkable portal vein and hepatic vein Doppler exams. -Hold IV fluid today, monitor renal function and blood pressure. -No evidence of hydronephrosis on the CT scan, urinalysis was benign. -Replace electrolytes as needed. -Increase levothyroxine to 175 mcg daily, repeat TSH in about 6 weeks. -Coumadin per pharmacy. -Continue home allopurinol, escitalopram, famotidine, hydralazine, levetiracetam. -Holding home metoprolol and Cardizem for intermittent hypotension. -Holding home losartan and Lasix for recent recovering RADHA, intermittent hypoten adiel. -Holding amiodarone for now. -Monitor LFTs. -GI consulted for elevated transaminases. -Cardiac diet. -PT and OT. -Orthostatic vitals daily for now. -DVT prophylaxis: On warfarin. -CODE STATUS: DNR/DNI. -Disposition: Inpatient MedSurg. Anticipate the patient will discharge to low intensity rehab when medically stable. Recommend referral to a composite laminator for further evaluation of chronic hepatitis. Time Spent With Patient Time: Total time spent is greater than 50% in coordination of care (as documented) at patient's floor/unit and/or counseling patient: QUALITY VTE Deep Vein Thrombosis/Pulmonary Embolism Present on Admission: No
[2022-11-28] MEDS: ALLOPURINOL 300 MG TABLET PO SCH (08:29)
[2022-11-28] MEDS: DOCUSATE SODIUM 100 MG CAPSULE PO SCH (08:29)
[2022-11-28] MEDS: FAMOTIDINE 20 MG TABLET PO SCH (08:29)
[2022-11-28] MEDS: levETIRAcetam 500 MG TABLET PO SCH (08:29)
[2022-11-28] MEDS: ESCITALOPRAM 10 MG TABLET PO SCH (08:29)
[2022-11-28] MEDS: MAGNESIUM SULFATE 2 GM/50 ML BAG IV SCH ×2 (09:47→10:49)
--- NOTE | 2022-11-28 10:03 | Discharge Summary ---
Discharge Provider Provider IMPORTANT FOLLOW-UP INFORMATION FOR PCP: Patient information: Note initiated : 11/28/22 at 10:01 am Service Date, if different from initiated Date: [] Patient: Rosie Caro 86 y/o F admitted on 11/25/22. Chief Complaint: [] Date of admission: 11/25/22 05:21 Discharge date: 11/28/22 Primary care physician: ROMEO Stratton Consults: 11/27/22 14:19 Consult to Physician [CONS] Routine Comment: Hepatitis of uncertain etiology. Consulting Provider: Primitivo Driver Reason For Exam: Physician to Consult COURSE Hospital Course Hospital course: Ms. Caro is a 86 year old female with a history not limited to hypertension, atrial flutter (on Coumadin), type 2 diabetes mellitus, hypothyroidism, gout, reportedly chronically elevated LFTs who presented to [facility] emergency department feeling unwell. The patient apparently lives in a facility but she does not recall if is at his assisted living or a care home facility. At [facility], the patient was found to have an acute kidney injury. A CT scan was obtained and showed sigmoid wall thickening, mild diverticulosis, intermediate lesions in bilateral kidneys. A urinalysis was positive for leukocyte Estrace, negative for nitrates. [facility] reported that there were no beds available, transfer to [facility] was requested. The patient was excepted for admission at [facility]. Upon arrival, the patient does not recall going to the emergency department and also does not recall why she went to the emergency department. Examination is notable for left lower quadrant tenderness. Patient's CODE STATUS is DNR/DNI. 11/26 No significant events reported overnight, vital stable. Renal function improving, continues on IV fluid. Left lower quadrant abdominal tenderness improving. Urinalysis was normal. Abdominal ultrasound showed hepatomegaly with nodular contour and mild ascites compatible with developing liver cirrhosis. There was at 1.1 cm hypoechoic mass seen in the superior right hepatic lobe. CT abdomen pelvis with biphasic arterial and portal venous phase contrast ordered for further evaluation of the hepatic mass. Potassium replaced. 11/27 Vitals have been stable except for intermittent hypotension. Orthostatic vitals positive today, IV fluid given today. Recheck orthostatic vitals tomorrow. Replaced potassium, magnesium and phosphorus today. Renal function improving, CT abdomen pelvis with biphasic IV contrast obtained to evaluate hypoechoic liver mass which was felt to be a cyst based on the CT report. It was inhomogeneous hepatic attenuation with periportal edema suggesting hepatopathy. There was an indeterminant left kidney lesion seen on the CT scan. There was a moderate concentric wall thickening in the gastric antrum with mucosal enhancement. Gastroenterology consulted for further evaluation of the elevated liver enzymes in light of the CT scan findings and felt that the clinical picture was most consistent with congestive hepatopathy. GI did not feel that amiodarone-induced liver injury was the reason for the patient's elevated liver enzymes. Chronic hepatitis panel and autoimmune hepatitis panel ordered, these are send out labs. An echocardiogram as well as a portal vein Doppler was ordered. I also ordered a left renal ultrasound for further evaluation of the indeterminate lesion seen on the CT scan. There were no signs of acute diverticulitis on the CT scan therefore I discontinued antibiotics as CT scans are quite sensitive for acute diverticulitis and a negative scan is associated with a high negative predictive value. TSH checked and was elevated at 9.86. Levothyroxine increased to 175 mcg daily. 11/28 Vitals stable overnight, normal blood pressure while in bed. Will check orthostatic vitals later this morning. INR trending up, the patient has not received Coumadin recently therefore this may be related to the patient's liver injury. Portal and hepatic vein duplex results were reported as unremarkable raising the question of whether or not the patient's transaminases are secondary to another cause other than congestive hepatopathy. Transthoracic echocardiogram report pending. Chronic hepatitis panel, autoimmune hepatitis panel pending. Hepatitis B surface antigen negative, hepatitis B core antibody negative, hepatitis C antibody negative. Magnesium was low this morning, replaced. The ultrasound showed that the indeterminant left kidney lesion was a cyst.CM working on placement. The patient does have a bed for low intensity rehab so we will proceed with discharge. At discharge I am going to continue home amiodarone, Toprol, losartan, Lasix, allopurinol, escitalopram, Keppra, famotidine. Levothyroxine was increased to 175 mcg daily. I recommend repeating a TSH in about 6 weeks and adjusting levothyroxine as needed. At discharge, I will not resume diltiazem, hydralazine and Coumadin. I requested that the care home facility follow the patient's INR and consider resuming Coumadin when INR drops below 2. We have not given Coumadin for several days in the hospital however INR has not trended down and I suspect this is due to the patient's liver dysfunction. I have requested a referral to hepatology for further evaluation of the patient's chronic hepatitis. Pending work-up during this hospitalization includes chronic hepatitis panel, autoimmune hepatitis panel. The transthoracic echocardiogram obtained yesterday report is still pending at discharge. Post hospital follow-up: -Follow-up renal function to ensure renal function remains stable. -Follow liver function test periodically. -Follow-up INR, holding Coumadin until INR is less than 2. -Repeat TSH in about 6 weeks and adjust levothyroxine dose accordingly. -Referral placed to hepatology for evaluation of chronic hepatitis. -Follow-up pending chronic hepatitis panel and autoimmune hepatitis panel. -Follow-up pending transthoracic echocardiogram report. Physical exam Head: Atraumatic, normal inspection. Eyes: normal appearance, no scleral icterus. Neck: full ROM Respiratory: no respiratory distress. Cardiovascular: normal rate, holosystolic murmur present GI/Abdominal: soft, left lower quadrant tenderness to palpation, mild rebound tenderness Extremities: full range of motion, nontender. Neurological: CN II-XII intact, intact motor, intact sensation. Psychiatric: Impaired memory, does not appear anxious. Skin: Bruising throughout upper and lower extremities. Discharge diagnosis: Acute kidney injury Time Spent with Patient Time attestation: Total time spent providing and/or coordinating discharge services: Time spent: Greater than 30 minutes EXAM Constitutional Vitals: Temp Pulse Resp BP Pulse Ox O2 Del Method O2 Flow Rate 97.7 F 75 18 129/55 92 Room Air 2 11/28/22 08:00 11/28/22 08:00 11/28/22 08:00 11/28/22 08:00 11/28/22 03:15 11/28/22 08:00 11/26/22 11:39 Discharge Data Data Completed and Pending Labs on day of discharge: Labs from last 24 hours 11/28/22 11/28/22 11/27/22 05:28 05:27 14:50 PT 46.4 H INR 4.8 H Sodium 135 Potassium 3.5 Chloride 105 Carbon Dioxide 23 Anion Gap 7.0 L BUN 19 Creatinine 1.3 H GFR Calculation 37 Glucose 91 Uric Acid 4.8 Calcium 7.7 L Phosphorus 2.7 Magnesium 1.4 L Total Bilirubin 0.6 Direct Bilirubin 0.3 H GGT 625 H AST 56 H ALT 52 H Alkaline Phosphatase 459 H Lactate Dehydrogenase 174 Total Protein 5.1 L Albumin 2.5 L Globulin 2.6 Albumin/Globulin Ratio 1.0 Triglycerides 80 TSH 9.86 H CHRISTI Screen CHRISTI Pattern Neuronal Nuc Ab Titer Mitochon/Sm Musc Ab Titr Smooth Muscle IgG Ab Livr/Kid Microsome 1 Ab Hepatitis A Ab Total Hep Bs Antigen Hep Bs Ag Neutralizatn Hep Bs Antibody, Quant Hep B Core Total Ab Hepatitis C Antibody HCV RNA Quant (PCR) HCV RNA PCR log IUs/ml Mitochondrial DNA Scrn 11/27/22 11/27/22 11/27/22 13:30 13:30 13:30 PT INR Sodium Potassium Chloride Carbon Dioxide Anion Gap BUN Creatinine GFR Calculation Glucose Uric Acid Calcium Phosphorus Magnesium Total Bilirubin Direct Bilirubin GGT AST ALT Alkaline Phosphatase Lactate Dehydrogenase Total Protein Albumin Globulin Albumin/Globulin Ratio Triglycerides TSH CHRISTI Screen Pending CHRISTI Pattern Pending Neuronal Nuc Ab Titer Pending Mitochon/Sm Musc Ab Titr Pending Smooth Muscle IgG Ab Pending Livr/Kid Microsome 1 Ab Pending Hepatitis A Ab Total Pending Hep Bs Antigen Pending Negative Hep Bs Ag Neutralizatn Pending Hep Bs Antibody, Quant Pending Hep B Core Total Ab Pending Negative Hepatitis C Antibody Pending Non-reactive HCV RNA Quant (PCR) Pending HCV RNA PCR log IUs/ml Pending Mitochondrial DNA Scrn Pending Discharge Plan Patient/Caregiver Discharge Instructions Activity: as per physical therapy Diet: Cardiac Activity Restrictions/Additional Instructions: Follow INR, start Coumadin when INR is less than 2. Prescriptions: New levothyroxine 175 mcg capsule 175 mcg PO QDAY Qty: 90 6RF Continued amiodarone 200 mg tablet 200 mg PO QDAY famotidine 20 mg tablet 20 mg PO DAILY Rx Instructions: Give at least 30 min before breakfast levetiracetam 500 mg tablet 500 mg PO Q12H losartan 100 mg tablet 100 mg PO QDAY metoprolol succinate 50 mg tablet extended release 24 hr 75 mg PO QDAY Rx Instructions: Hold for SBP<100 allopurinol 300 MG tablet 300 mg PO DAILY escitalopram oxalate 10 mg tablet 10 mg PO QDAY furosemide 20 mg tablet 20 mg PO QDAY Adult One Daily Multivitamin 1 tab PO DAILY Discontinued hydralazine 25 mg tablet 25 mg PO TID Rx Instructions: hold for SBP <100, DBP <60 warfarin 2 mg tablet 2 mg PO DIRECTED Rx Instructions: every Sat, Sat, Sat, Sat, Sun. warfarin 3 mg tablet 2.5 mg PO DIRECTED Rx Instructions: 2.5 mg and diltiazem HCl 180 MG capsule,extended release 24hr 240 mg PO DAILY Rx Instructions: hold for pulses less than 60 levothyroxine [Levoxyl] 25 mcg tablet 150 mcg PO DAILY Follow Up Plan Follow up with: Jude Silveira [Referring] - (Chronic hepatitis of uncertain etiology. ) Patient Disposition: Xfer SNF Rehab Potential: Fair I certify that the patient requires SNF services: Yes Overall status at discharge: patient is progressing back to baseline Discharge Orders: Discharge Order (Routine); Ordered 11/28/22 Ordered By: Ant Vargas QUALITY VTE Deep Vein Thrombosis/Pulmonary Embolism Present on Admission: No
[2022-11-29 12:56] LABS: Hepatitis B Surface Antigen NON-REACTIVE (NON-REACTIVE); Hepatitis C Virus Antibody NON-REACTIVE (NON-REACTIVE)
[2022-12-02 02:11] LABS: Actin (Smooth) Muscle AB IgG <20 U; Liver Kidney Microsomal AB IgG <20.0 U
== END 2022-11-28 14:15 | DRG 683 ==
LOC: MEDSUR 05:21
PROVIDERS: ADMIT Internal Medicine; ATTEND Internal Medicine